=== PATIENT | male | born 1990 | race Caucasian/White ===

== ENCOUNTER 2018-07-22 14:08 | Emergency (ER) | payer OTHER, BC ==
[~2018-07-22] VITALS: Ht 188 cm; Wt 82.0 kg
[2018-07-22 14:31] VITALS: BP 133/80
[2018-07-22] MEDS ORDERED: DEXAMETHASONE 4 MG/ML, 5ML ONE (14:42)
[2018-07-22] MEDS ORDERED: KETOROLAC 30 MG/1 ML ONE (14:42)
[2018-07-22] MEDS ORDERED: DEXAMETHASONE 4 MG/ML, 1ML PO ONE (15:00)
[2018-07-22] MEDS ORDERED: KETOROLAC 30 MG/1 ML IM ONE (15:00)
[2018-07-22] MEDS ORDERED: BICILLIN-LA 1,200,000 UNITS/2 ML IM ONE (15:30)
== END 2018-07-22 15:56 | disposition home or self-care (01) ==
LOC: ED 15:50
DX: J15.9 Unspecified bacterial pneumonia (principal); J02.0 Streptococcal pharyngitis
CPT/HCPCS: 71046; 87880; 96372; 99285; J0561; J1100; J1885

== ENCOUNTER 2020-05-15 04:15 | Observation (INO) | payer BC, OTHER ==
[~2020-05-15] VITALS: Ht 188 cm; Wt 91.1 kg
--- NOTE | 2020-05-15 04:24 | NUR ---
PT AMBULATORY TO ROOM AT THIS TIME, STEADY GAIT.
[2020-05-15] MEDS ORDERED: DEXAMETHASONE 4 MG/ML, 5ML ONE (04:39)
[2020-05-15] MEDS ORDERED: BICILLIN-LA 1,200,000 UNITS/2 ML IM ONE (05:00)
[2020-05-15] MEDS ORDERED: DEXAMETHASONE 4 MG/ML, 1ML IM ONE (05:00)
--- NOTE | 2020-05-15 05:17 | NUR ---
THIS PT PRESENTS TO THE ED WITH SWOLLEN UVULA, GROSSLY ENLARGED TO THE POINT OF IT RESTING ON TOUNGE. PT ANSWERING YES OR NO QUESTIONS BY NODDING HEAD, HAS ONLY SPOKEN A COUPLE OF WORDS. PT EXPRESSES THAT IT IS HARD TO BREATH, SATING 97% ON RA, ALL OTHER VSS. PT USING TISSUE OT SPIT IN. POSITION OF COMFORT IS SITTING HOWEVER, PT WAS LATERAL LAYING WHEN THIS RN WALKED IN. PT HAS A HX OF STREP, EXPRESSES HIS THROAT GETS SWOLLEN ABOUT ONCE A YEAR, BUT NEVER TO THIS POINT. PT CONNECTED TO BP AND O2 MONITORS, SIDE RAIL UP, CALL LIGHT IN REACH, CELL PHONE IN REACH AND VOMIT BAG IN REACH FOR PT TO SPIT IN.
--- NOTE | 2020-05-15 05:24 | NUR ---
ERP MADE AWARE THAT PT EXPRESSES NO RELIEF OF SYMPTOMS, NO NEW ORDERS AT THIS TIME. PT GOES FROM RESTING WITH EYES CLOSED TO STANDING IN ROOM.
--- NOTE | 2020-05-15 05:27 | NUR ---
PT UPDATED ON POC. PT AMBULATORY TO BATHROOM, STEADY GAIT.
[2020-05-15] MEDS ORDERED: LORazepam 2 MG/ML, 1ML ONE ×2 (06:10→10:54)
[2020-05-15] MEDS ORDERED: ONDANSETRON 2MG/ML, 2ML ONE (06:11)
--- NOTE | 2020-05-15 06:21 | NUR ---
PT WITH SHAKING LEG, PT APPEARS TO BE HOLDING BACK TEARS, PT AFFIRMS HE'S ANXIOUS. PT ASKED FOR NAUSEA MEDS, PT UNSURE IF NAUSEA IS SEPERATE FROM ANXIETY, MEDICATED FOR BOTH. PT CONVERSING WITH THIS RN. PT EDUCATED TO USE CALL LIGHT, BED RAILS UP X2, CALL LIGHT AND CELL PHONE IN REACH.
[2020-05-15] MEDS ORDERED: SODIUM CHLORIDE 0.9% 1,000ML IVBOLUS ONE (06:30)
[2020-05-15] MEDS ORDERED: SODIUM CHLORIDE 0.9% 1,000 ML IV SCH (06:30)
[2020-05-15] MEDS ORDERED: ONDANSETRON 2MG/ML, 2ML IVPush ONE (06:30)
[2020-05-15] MEDS ORDERED: LORazepam 2 MG/ML, 1ML IVPush ONE (06:30)
--- NOTE | 2020-05-15 06:45 | NUR ---
PT TO IMAGING.
--- NOTE | 2020-05-15 06:51 | NUR ---
bedside report from ROYA Cruz.
--- NOTE | 2020-05-15 07:12 | NUR ---
RECEIVED REPORT FROM ROYA BAI. LESA. VSS. UVULA NOTED TO BE HANGING FORWARD TOUCHING TONGUE. PT DENIES DIFFICULTY BREATHING. UP TO RESTROOM AND BACK TO [facility]. AWARE OF POC FOR ENT.
--- NOTE | 2020-05-15 07:12 | NUR ---
bedside report to chauncey Sandy.
[2020-05-15] MEDS ORDERED: ONDANSETRON 2MG/ML, 2ML IVPush PRN (08:30)
[2020-05-15] MEDS ORDERED: LORazepam 2 MG/ML, 1ML IVPush PRN (08:30)
[2020-05-15] MEDS ORDERED: ACETAMINOPHEN 650 MG SUPP PR PRN (08:30)
[2020-05-15] MEDS ORDERED: morphine SULFATE 10 MG/ML, 1ML IVPush PRN (08:30)
--- NOTE | 2020-05-15 08:52 | NUR ---
BEDSIDE REPORT TO ROYA MONAE.
[2020-05-15 08:57] LABS: MEAN CORPUSCULAR HEMOGLOBIN 31.5 pg (27.5-34.5); MEAN CORPUSCULAR HGB CONC 33.4 g/dL (33.2-36.2); MEAN CORPUSCULAR VOLUME 94.3 fL (81-97); MEAN PLATELET VOLUME 6.9 fL (7.4-10.4); PLATELET COUNT 350 x10^3/uL (130-400); RED BLOOD COUNT 4.94 x10^6/uL (4.38-5.82); RED CELL DISTRIBUTION WIDTH 12.8 % (9.4-14.8)
[2020-05-15 09:09] LABS: ANION GAP 7 mmol/L (5-15); CALCIUM 9.3 mg/dL (8.5-10.1); CHLORIDE 105 mmol/L (98-107); CREATININE 0.87 mg/dL (0.7-1.3)
[2020-05-15 09:24] LABS: BASOPHILS # (AUTO) 0.03 x10^3/uL (0-0.1); BASOPHILS % (AUTO) 0 % (0-1); EOSINOPHILS % (AUTO) 0 % (1-7); LYMPHOCYTES % (AUTO) 5 % (22-44); MD SCAN; MONOCYTES # (AUTO) 0.03 x10^3/uL (0.2-0.8); MONOCYTES % (AUTO) 0 % (2-9); NEUTROPHILS % (AUTO) 95 % (42-75)
[2020-05-15] MEDS ORDERED: DEXAMETHASONE 4 MG/ML, 1ML ONE (09:28)
[2020-05-15] MEDS ORDERED: DIPHENHYDRAMINE 50 MG/ML, 1ML ONE (09:28)
[2020-05-15] MEDS ORDERED: KETOROLAC 30 MG/1 ML ONE (09:28)
[2020-05-15] MEDS ORDERED: FAMOTIDINE 20 MG/2 ML ONE (09:29)
[2020-05-15] MEDS: SODIUM CHLORIDE 0.9% 1,000 ML IV SCH ×2 (09:39→17:42)
[2020-05-15] MEDS: FAMOTIDINE 20 MG/2 ML IVPush SCH ×2 (09:39→21:54)
[2020-05-15] MEDS: KETOROLAC 30 MG/1 ML IV SCH ×3 (09:39→21:54)
[2020-05-15] MEDS: DEXAMETHASONE 4 MG/ML, 1ML IVPush SCH ×3 (09:39→20:21)
[2020-05-15] MEDS: DIPHENHYDRAMINE 50 MG/ML, 1ML IVPush SCH ×3 (09:39→21:54)
--- NOTE | 2020-05-15 10:37 | NUR ---
TASK RN: PT RESTING ON HOSP BED. NO NEEDS REQUESTED AT THIS TIME. PT HAS SUCTION AVAILABLE
--- NOTE | 2020-05-15 11:04 | NUR ---
Now able to swallow Moved to hospital bed for prolonged ER stay Medicated per emar for continued anxiety
--- NOTE | 2020-05-15 12:12 | NUR ---
darrion requested from pharmacy
[2020-05-15] MEDS ORDERED: MORPHINE SULFATE 4 MG/ML, 1ML ONE (12:26)
[2020-05-15] MEDS: FLUTICASONE NASAL SPRAY 16GM NAS SCH ×2 (12:39→21:55)
--- NOTE | 2020-05-15 12:40 | NUR ---
BENADRYL/ATIVAN NOT SEDATING. MEDICATED PER EMAR WITH MORPHINE FOR CONTINUED THROAT PAIN (2MG) UP TO RESTROOM TO VOID
[2020-05-15 14:18] VITALS: BP 137/82
[2020-05-15 21:26] VITALS: BP 128/79
[2020-05-16 00:26] VITALS: BP 106/68
[2020-05-16] MEDS: DEXAMETHASONE 4 MG/ML, 1ML IVPush SCH ×2 (02:44→07:48)
[2020-05-16] MEDS: SODIUM CHLORIDE 0.9% 1,000 ML IV SCH (02:52)
[2020-05-16 07:01] VITALS: BP 125/76
[2020-05-16] MEDS: FLUTICASONE NASAL SPRAY 16GM NAS SCH (07:49)
[2020-05-16] MEDS: FAMOTIDINE 20 MG/2 ML IVPush SCH (07:49)
[2020-05-16] MEDS ORDERED: METH4TAB2 PO (08:44)
[2020-05-16] MEDS ORDERED: IBUP-1902 PO (08:44)
[2020-05-16] MEDS ORDERED: ACET325T14 PO (08:44)
[2020-05-16] MEDS ORDERED: FLUT16SP24 NAS (08:44)
[2020-05-16] MEDS ORDERED: DIPH25CA61 PO (08:44)
[2020-05-16] MEDS ORDERED: FAMO-79 PO (08:44)
== END 2020-05-16 10:19 | disposition home or self-care (01) ==
LOC: ED 06:18 → INTOOBSV 07:57 → EDIP 07:57 → 3N 14:09 → DCLOUNGE 05-16 10:09
PROVIDERS: ADMIT Family Medicine; ATTEND Family Medicine
DX: J02.9 Acute pharyngitis, unspecified (principal); F41.9 Anxiety disorder, unspecified; I10 Essential (primary) hypertension; K12.2 Cellulitis and abscess of mouth; D72.829 Elevated white blood cell count, unspecified; Z79.899 Other long term (current) drug therapy
CPT/HCPCS: 36415; 70360; 80048; 85025; 87081; 87880; 96372; 96374; 96375; 96376; 99284; G0378; J0561; J1100; J1200; J1885; J2060; J2270; J2405; J3490; J7030

== ENCOUNTER 2020-05-25 19:05 | Emergency (ER) | payer OTHER ==
[~2020-05-25] VITALS: Ht 188 cm; Wt 88.2 kg
[~2020-05-25 19:05] MED LIST: ACET325T14 PO; DIPH25CA61 PO; FAMO-79 PO; FLUT16SP24 NAS; IBUP-1902 PO; METH4TAB2 PO
--- NOTE | 2020-05-25 19:36 | NUR ---
Patient presents to ER c/o blurry vision, difficulty standing/walking, and difficulty speaking. Symptoms started yesterday and became worse today. Patient has never had these symptoms before. Patient was seen here recently for an airway obstruction and has been taking abx and steroids since then. Patient is crying in room. at bedside. Respirations even and unlabored.
[2020-05-25] MEDS ORDERED: LORazepam 2 MG/ML, 1ML ONE (20:08)
[2020-05-25] MEDS ORDERED: LORazepam 2 MG/ML, 1ML IVPush ONE (20:30)
[2020-05-25 20:38] LABS: BASOPHILS # (AUTO) 0.05 x10^3/uL (0-0.1); BASOPHILS % (AUTO) 1 % (0-1); EOSINOPHILS # (AUTO) 0.24 x10^3/uL (0-0.4); EOSINOPHILS % (AUTO) 3 % (1-7); LYMPHOCYTES # (AUTO) 3.85 x10^3/uL (1-3.4); LYMPHOCYTES % (AUTO) 47 % (22-44); MD NO; MEAN CORPUSCULAR HEMOGLOBIN 31.1 pg (27.5-34.5); MEAN CORPUSCULAR HGB CONC 32.8 g/dL (33.2-36.2); MEAN CORPUSCULAR VOLUME 95.1 fL (81-97); MONOCYTES # (AUTO) 0.52 x10^3/uL (0.2-0.8); MONOCYTES % (AUTO) 6 % (2-9); NEUTROPHILS # (AUTO) 3.47 x10^3/uL (1.8-6.8); NEUTROPHILS % (AUTO) 43 % (42-75); PLATELET COUNT 412 x10^3/uL (130-400); RED BLOOD COUNT 5.65 x10^6/uL (4.38-5.82)
[2020-05-25 20:42] LABS: MICROSCOPIC NOT IND
[2020-05-25 20:48] LABS: ALBUMIN 4.7 g/dL (3.4-5.0); ANION GAP 9 mmol/L (5-15); CALCIUM 9.2 mg/dL (8.5-10.1); CHLORIDE 106 mmol/L (98-107); SALICYLATE LEVEL 4.5 mg/dL (2.8-20.0)
[2020-05-25 20:51] LABS: ALANINE AMINOTRANSFERASE 40 U/L (12-78); ALKALINE PHOSPHATASE 73 U/L (45-117); AMPHETAMINE SCREEN, URINE Negative (Negative); BARBITURATE SCREEN, URINE Negative (Negative); BENZODIAZEPINE SCREEN, URINE Negative (Negative); BILIRUBIN,TOTAL 0.4 mg/dL (0.2-1.0); CANNABINOID SCREEN, URINE Negative (Negative); COCAINE SCREEN, URINE Negative (Negative); CREATININE 0.99 mg/dL (0.7-1.3); METHADONE SCREEN, URINE Negative (Negative); OPIATE SCREEN, URINE Negative (Negative); TOTAL PROTEIN 8.9 g/dL (6.4-8.2)
--- NOTE | 2020-05-25 21:42 | NUR ---
This pt spoke with RN and verbalized suicidal ideation and per patient he has a gun at home that he would use. Pt reports that the pandemic has made it worse and reports he is incredibly stressed and does not know what to do. Pt very tearful and unable to contain himself. Pt encouraged that it was okay to feel that way and that he was in a safe zone. Pt is not ready for his to know who is in the room and this information will be held until the patient is ready for it to be shared. Pt denies homicidal ideation. Reports he felt suicidal a long time ago but that now has resolved. Pt connected to monitors and resting in bed.
--- NOTE | 2020-05-25 23:16 | NUR ---
Pt at this time moved to a safe room. Bedside report to Lesvia PRYOR provided. Informed Nancy that patient still needs tpo sober up and need to be monitored as he had a stretch of hypoxia. Pt was aggreable to this. pt has belongings in on white bag. Pt does have his phone as he is not on a legal hold yet. Pt resting and vss.
--- NOTE | 2020-05-26 02:44 | NUR ---
PT HAS REMAINED SLEEPING. PT UPDATED ON POC, PROVIDED WITH WATER. ALL NEEDS MET AT THIS TIME.
--- NOTE | 2020-05-26 03:19 | NUR ---
PT AMBULATORYT TO BATHROOM, STEADY GAIT.
--- NOTE | 2020-05-26 05:21 | NUR ---
PT HAS REMAINED SLEEPING AND IN VIEW OF SITTER.
--- NOTE | 2020-05-26 05:41 | NUR ---
WHEN ASKED HOW PT IS DOING, PT STATES "FINE" AND FALLS BACK ASLEEP, EYES CLOSED, RESPIRATIONS EVEN AND UNLABORED. PROVIDED WITH WATER AT PT'S REQUEST.
--- NOTE | 2020-05-26 06:19 | NUR ---
PT SLEEPING, EYE CLOSED, RESPIRATIONS EVEN AND UNLABORED, IN VIEW OF SITTER.
--- NOTE | 2020-05-26 06:57 | NUR ---
BEDSIDE REPORT GIVEN TO ROYA DE DIOS.
--- NOTE | 2020-05-26 07:07 | NUR ---
RECEIVED REPORT FROM JUAN FRANCISCO PRYOR AND ASSUMED CARE. PT AWARE HE IS AWAITING PSYCH EVAL.
--- NOTE | 2020-05-26 07:15 | NUR ---
TO BATHROOM ACROSS JENSEN. BELONGINGS SECURED IN LOCKER. PT IN SITE OF SITTER.
[2020-05-26 07:47] VITALS: BP 126/74
--- NOTE | 2020-05-26 09:15 | NUR ---
TELEPSYCH SCREEN IN ROOM AND AWAITING EVAL
--- NOTE | 2020-05-26 10:53 | NUR ---
TELEPSYCH EVAL COMPLETED. NO FAX RECEIVED AT THIS TIME. SCRIBE REACHING OUT TO REQUEST FAX
--- NOTE | 2020-05-26 11:30 | NUR ---
provided belongings and discharge. ambulated to discharge window steady gait
== END 2020-05-26 11:32 | disposition home or self-care (01) ==
LOC: ED 20:03
DX: R42 Dizziness and giddiness (principal); R45.851 Suicidal ideations; F10.120 Alcohol abuse with intoxication, uncomplicated; F41.9 Anxiety disorder, unspecified; F32.9 Major depressive disorder, single episode, unspecified; R41.0 Disorientation, unspecified; R00.0 Tachycardia, unspecified; Y90.9 Presence of alcohol in blood, level not specified
CPT/HCPCS: 36415; 70450; 80053; 80307; 81003; 85025; 93005; 96374; 99285; J2060